=== PATIENT | male | born 1980 | race Caucasian/White ===

== ENCOUNTER 2018-03-24 08:43 | Emergency (ER) | payer BC ==
[2018-03-24] MEDS ORDERED: NS 1,000 ML IV ONE (09:20)
--- NOTE | 2018-03-24 09:23 | EDPHY ---
H & P Stated Complaint: Height head, trouble focusing Time Seen by Provider: 03/24/18 09:12 HPI/ROS: CHIEF COMPLAINT: Lightheaded, trouble focusing HISTORY OF PRESENT ILLNESS: Patient is a 37-year-old man with a history of anxiety and panic attacks who flew here yesterday from [place] for business. He states that he felt fine yesterday but this morning woke up and felt slightly lightheaded. He had trouble focusing on getting ready. He felt lightheaded when he tried to climb the stairs. He does not feel overly stressed or anxious. He has no history of cardiac disease. He denies chest pain or palpitations. He denies shortness of breath. No recent fevers or illness. No leg pain or swelling. No headache, no neck pain Severity: Minimal Modifying factors: None REVIEW OF SYSTEMS: Constitutional: denies: chills, fever, recent illness, recent injury EENTM: denies: blurred vision, double vision, nose congestion Respiratory: denies: cough, shortness of breath Cardiac: denies: chest pain, irregular heart rate, lightheadedness, palpitations Gastrointestinal/Abdominal: denies: abdominal pain, diarrhea, nausea, vomiting, blood streaked stools Genitourinary: denies: dysuria, frequency, hematuria, pain Musculoskeletal: denies: joint pain, muscle pain Skin: denies: lesions, rash, jaundice, bruising Neurological: denies: headache, numbness, paresthesia, tingling, dizziness, weakness Hematologic/Lymphatic: denies: blood clots, easy bleeding, easy bruising Immunologic/allergic: denies: HIV/AIDS, transplant 10 systems reviewed and negative except as noted EXAM: GENERAL: Well-appearing, well-nourished and in no acute distress. HEAD: Atraumatic, normocephalic. EYES: Pupils equal round and reactive to light, extraocular movements intact, sclera anicteric, conjunctiva are normal. ENT: TMs normal, nares patent, oropharynx clear without exudates. Moist mucous membranes. NECK: Normal range of motion, supple without lymphadenopathy or JVD. LUNGS: Breath sounds clear to auscultation bilaterally and equal. No wheezes rales or rhonchi. HEART: Regular rate and rhythm without murmurs, rubs or gallops. ABDOMEN: Soft, nontender, normoactive bowel sounds. No guarding, no rebound. No masses appreciated. BACK: No CVA tenderness, no spinal tenderness, step-offs or deformities EXTREMITIES: Normal range of motion, no pitting or edema. No clubbing or cyanosis. NEUROLOGICAL: Cranial nerves II through XII grossly intact. Normal speech, normal gait. 5/5 strength, normal movement in all extremities, normal sensation , normal reflexes PSYCH: Normal mood, normal affect. SKIN: Warm, dry, normal turgor, no visible rashes or lesions. Source: Patient Exam Limitations: No limitations - Personal History Current Tetanus Diphtheria and Acellular Pertussis (TDAP): Yes - Medical/Surgical History Hx Asthma: No Hx Chronic Respiratory Disease: No Hx Diabetes: No Hx Cardiac Disease: No Hx Renal Disease: No Hx Cirrhosis: No Hx Alcoholism: No Hx HIV/AIDS: No Hx Splenectomy or Spleen Trauma: No Other PMH: Sinus infection. Heart palitations. Panic attacks. - Family History Significant Family History: No pertinent family hx - Social History Smoking Status: Never smoked Alcohol Use: Sober Drug Use: None Constitutional: Initial Vital Signs Temperature (C) 36.5 C 03/24/18 08:48 Heart Rate 106 H 03/24/18 08:48 Respiratory Rate 18 03/24/18 08:48 Blood Pressure 103/66 03/24/18 08:48 O2 Sat (%) 93 03/24/18 08:48 O2 Delivery Mode Room Air Allergies/Adverse Reactions: Sulfa (Sulfonamide Antibiotics) Allergy (Verified 03/24/18 08:52) Home Medications: Medication Instructions Recorded Azithromycin 03/25/18 Flonase Allergy Relief 03/25/18 Zyrtec 03/25/18 Medical Decision Making - Diagnostics EKG Interpretation: An EKG obtained and was read and documented in trace view. Please see trace view for full reading and report. Sinus rhythm no acute ischemic changes Imaging: Discussed imaging studies w/ biofuels production technician Radiologist ED Course/Re-evaluation: The patient developed a mild headache which she states is not unusual for him. Resolved with ibuprofen here in the department. His heart rate improved with fluids. His x-ray ears at is mild airway disease. We discussed this. His white count is elevated. Otherwise he is well appearing and remains afebrile. No hypoxia. We agreed to start him on a Z-Merlin. We discussed indications for returning. Differential Diagnosis: Partial list of the Differential diagnosis considered include but were not limited to; bronchitis, upper respiratory tract infection, influenza, strep throat, anxiety and although unlikely based on the history and physical exam, I also considered acute coronary disease, sepsis, meningitis. I discussed these differential diagnoses and the plan with the patient as well as the usual and expected course. The patient understands that the diagnosis is provisional and that in medicine we are not always correct and that further workup is often warranted. Usual and customary warnings were given. All of the patient's questions were answered. The patient was instructed to return to the emergency department should the symptoms at all worsen or return, otherwise to followup with the physician as we discussed. - Data Points Laboratory Results: Laboratory Results 03/24/18 09:40 03/24/18 09:40 Medications Given: Discontinued Medications Azithromycin (Zithromax) 500 mg PO EDNOW ONE PRN Reason: Protocol Stop: 03/24/18 11:16 Last Admin: 03/24/18 11:27 Dose: 500 mg Sodium Chloride (Ns) 1,000 mls @ 0 mls/hr IV EDNOW ONE; Wide Open PRN Reason: Protocol Stop: 03/24/18 09:21 Last Admin: 03/24/18 10:10 Dose: 1,000 mls Ibuprofen (Motrin) 800 mg PO EDNOW ONE Stop: 03/24/18 09:56 Last Admin: 03/24/18 10:11 Dose: 800 mg Point of Care Test Results: Chemistry 03/24/18 09:45 POC Troponin I 0.00 ng/mL ng/mL (0.00-0.08) Departure - Departure Disposition: Home, Routine, Self-Care Clinical Impression: Bronchitis Condition: Good Instructions: Azithromycin (By mouth), Acute Bronchitis (ED) Referrals: NONE *PRIMARY CARE P,. [Primary Care Provider] - As per Instructions Maty Willoughby DO [Doctor of Osteopathy] - As per Instructions
--- NOTE | 2018-03-24 09:38 | CPEKG ---
Test Reason : OPEN Blood Pressure : / mmHG Vent. Rate : 089 BPM Atrial Rate : 089 BPM P-R Int : 141 ms QRS Dur : 083 ms QT Int : 339 ms P-R-T Axes : 081 077 064 degrees QTc Int : 413 ms Sinus rhythm Confirmed by Agustin Flores ([id number]) on 03/24/2018 9:38:07 AM Referred By: Confirmed By:Agustin Flores
[2018-03-24 09:48] LABS: PLATELET COUNT 300 10^3/uL (150-400)
[2018-03-24] MEDS ORDERED: IBUPROFEN 800 MG TAB PO ONE (09:55)
[2018-03-24] MEDS ORDERED: AZITHROMYCIN 250 MG TAB PO ONE (11:15)
[2018-03-24 11:27] VITALS: BP 103/63
== END 2018-03-24 11:47 | disposition home or self-care (01) ==
DX: J40 Bronchitis, not specified as acute or chronic (principal)
CPT/HCPCS: 84484-PO

== ENCOUNTER 2018-03-25 10:58 | Emergency (ER) | payer BC ==
[2018-03-25] MEDS ORDERED: ONDANSETRON DISINTEGRATING 4 MG TAB PO ONE (11:33)
--- NOTE | 2018-03-25 11:45 | EDPHY ---
General - History Smoking Status: Never smoked Time Seen by Provider: 03/25/18 11:38 Narrative: Independent physician evaluation: CHIEF COMPLAINT: Headache, clumsiness, altered mental status HISTORY OF PRESENT ILLNESS: The patient presents to the ED with complaints of increasing frontal headache, clumsiness, confusion and visual complaints which have been increasing over the past day. The patient is visiting [place] from [place]. He has been here on a business trip for the past day. Yesterday he woke in the morning with symptoms of sore throat. He developed nausea and vomiting throughout the day. He reportedly was also having some difficulty with fine motor movement and reported some difficulty shaving his face. He was also having some difficulty reading. He reports that he was unable to comprehend the difference between caffeinated decaffeinated coffee in the hotel room. This led the patient to come to the emergency department last night. He had a workup including an EKG which is unremarkable. He was noted to have a leukocytosis and questionable bronchitis noted on x-ray. Although the patient had no symptoms of a cough he was discharged home with a Z-Merlin. He returns today complaining of an increasing headache, difficulty ambulating, generalized weakness and the worse headache of his life. Physical exam: General Appearance: Alert, no distress Eyes: Pupils equal and round no pallor or injection ENT, Mouth: Mucous membranes moist Respiratory: There are no retractions, lungs are clear to auscultation Cardiovascular: Regular rate and rhythm Gastrointestinal: Abdomen is soft and nontender, no masses, bowel sounds normal Neurological: 5/5 strength noted all 4 extremities, cranial nerves 2-12 intact , no visual field deficit appreciated, normal finger to nose and fine motor movement appreciated Skin: Warm and dry, no rashes Musculoskeletal: Patient does have meningeal symptoms with forward flexion of his neck Extremities: symmetrical, full range of motion Psychiatric: Patient is oriented X 3, there is no agitation ED course: Patient presents to the ED with vague neurologic complaints of confusion, weakness and subjective ataxia. The patient was noted to have mild meningeal symptoms on exam. A noncontrast head CT scan artifact verses a abnormality of the brainstem. The patient was verbally consented to go undergo lumbar puncture which was performed by myself without complication at 1:45 p.m.. The patient did received 15 mg of IV Toradol following his LP. MRI of the brain with and without contrast has been ordered. The patient will be turned over to Dr. Kenyon at shift change pending the LP results and MRI. Procedure: Procedure: Lumbar puncture. Indication: headache After verbal informed consent from patient explaining the risks including infection, bleeding, and neurologic damage, a lumbar puncture was performed after the patient was prepped and draped in the usual fashion. The back was anesthetized with 1% lidocaine. Approximately 4 cc of clear fluid was obtained. Opening pressure was not obtained. There were no complications. The procedure was performed by myself. (Crow Burgos) CHIEF COMPLAINT: Headache, "motor skills off," vomiting HISTORY OF PRESENT ILLNESS: Patient presents to emergency depart by private vehicle with complaints of headache, vomiting, ear pain, and "my motor skills seem off."He describes the motor skills as having difficulty holding things for long periods and dropping things repeatedly. Symptoms have been present for several days. He was evaluated here for this similar complaints yesterday. He also had a cough at that time. He had extensive workup with diagnosis of bronchitis, with prescription for Zithromax. He is not taking any further medication for this other than ibuprofen. He states that he felt significantly better yesterday evening and last night, even going to dinner with his coworkers. However he awoke this morning with her his symptoms. He is a frontal headache with moderate to severe ear pain, nausea and vomiting several times. No chest pain. Minimal cough. No shortness of breath. No lower extremity complaints. Does have mild lower back pain. He has no urinary complaints. He has no fever. Associated with some mild dizziness that he describes as "it is really hard to describe." No numbness tingling or weakness. No Difficulty ambulating. No incontinence of bowel or bladder. No neck stiffness but does have occasional neck pain. He is traveling from [place] returns home later today. No other associated complaints or modifying factors REVIEW OF SYSTEMS: 10 systems were reviewed and negative with the exception of the elements mentioned in the history of present illness. PCP: Located in [place] SPECIALISTS: None PAST MEDICAL HISTORY: Sinus infection, panic attacks or palpitations. PAST SURGICAL HISTORY: No surgical history SOCIAL HISTORY: Nonsmoker. Occasional alcohol use. One severely cigar. No THC use. Lives in [place]. Traveling here for work until later today. FAMILY HISTORY: Noncontributory EXAMINATION: General Appearance: Alert, no distress. Well appearing. Ambulatory and conversing in complete sentences. Head: normocephalic, atraumatic Eyes: Pupils equal and round, no conjunctival pallor or injection. EOM symmetric. ENT, Mouth: Mucous membranes moist. Airway patent Neck: Normal inspection, supple, non-tender. No meningismus or rigidity. Midline trachea. Respiratory: Lungs are clear to auscultation pedal wheezing rhonchi or crackles Cardiovascular: Tachycardic rate. Regular rhythm. No murmur Gastrointestinal: Abdomen is soft and nontender Back: non-tender, no bony abnormalities Neurological: GCS 15. A&O, nonfocal, normal gait. Light sensory symmetric upper lower extremities. Normal [id number]. No pronator drift. Patellar reflexes symmetric 2+. Skin: Warm and dry, no rash Extremities: Nontender, no pedal edema Psychiatric: Mood and affect normal DIFFERENTIAL DIAGNOSES: Including but not limited to meningitis, vertigo, sinusitis, demyelination, dehydration, MDM: 11:45 a.m. [place] of complaints as above with no meningismus, normal neuro examination without any focal deficits. He is mildly tachycardic at 103 beats per minute. He is well-appearing. His lungs are clear. He has no nystagmus. I have ordered meclizine and he has already received Zofran. I will discuss with Dr. Burgos. He is in no acute distress. 12:10 p.m. Case discussed with Dr. Burgos he recommends CT scans of the head along with repeat laboratory studies for comparison. Patient is agreeable to this. 12:30 p.m. Notified by radiologist Dr. Donald with CT results as documented. Laboratory studies pending. 1:00 p.m. Remainder of laboratory studies are within normal limits. Patient has been evaluated by Dr. Burgos and he informs me that he will perform a lumbar puncture. He will assume care the patient at this time. Please see his note for further care final disposition. I am no longer involved in his care. SUPERVISION: Patient was evaluated and examined in conjunction with my secondary supervising physician Dr. Burgos as documented. We have both examined the patient. (Yosi Mckeon) Medical Decision Making: Re-evaluation 4:35 p.m.. Patient and I discussed imaging and lab results. Patient is conversational and neurologically intact. He complains of frontal headache. He is given Tylenol in the emergency department. We have considered CVA, brain tumor, meningitis. I suspect that this is viral syndrome (Bello Kenyon) - Diagnostics Imaging Results: Imaging Impressions Head CT 03/25/18 12:05 Impression: Artifact versus abnormal vascular structure or other abnormality in the left brainstem. Recommendation: Consider MRI without and with contrast. Results discussed with Yosi Mckeon at 12:35 PM. General information for patients regarding this examination can be found at [email or web address]. If you have questions or comments about this report, please contact me at [phone] (hospital) or [phone] ([facility]). Brain MRI 03/25/18 15:00 Impression: Small left frontal lobe venous angioma; otherwise normal MRI examination of the brain without and with contrast. Results called to Dr. Bello Kenyon at 4:20 p.m. Brain MRI without and with contrast reviewed by me and discussed with Dr. Villafuerte shows no evidence for CVA or tumor or bleeding especially paying attention to the brainstem with above CT impression. There is a venous angioma in the left frontal lobe is an incidental finding (Bello Kenyon) - Objective Vital Signs: Initial Vital Signs Temperature (C) 37.4 C 03/25/18 11:03 Heart Rate 103 H 03/25/18 11:03 Respiratory Rate 18 03/25/18 11:03 Blood Pressure 101/75 03/25/18 11:03 O2 Sat (%) 94 03/25/18 11:03 O2 Delivery Mode Room Air Allergies/Adverse Reactions: Sulfa (Sulfonamide Antibiotics) Allergy (Verified 03/24/18 08:52) Home Medications: Medication Instructions Recorded Azithromycin 03/25/18 Flonase Allergy Relief 03/25/18 Zyrtec 03/25/18 Laboratory Results: Laboratory Results 03/25/18 12:20 03/25/18 12:20 03/25/18 03/25/18 03/25/18 14:14 14:05 13:41 WBC RBC Hgb Hct MCV MCH MCHC RDW Plt Count MPV Neut % (Auto) Lymph % (Auto) [place] % (Auto) Eos % (Auto) Baso % (Auto) Nucleat RBC Rel Count Absolute Neuts (auto) Absolute Lymphs (auto) Absolute Monos (auto) Absolute Eos (auto) Absolute Basos (auto) Absolute Nucleated RBC Immature Gran % Immature Gran # Sodium Potassium Chloride Carbon Dioxide Anion Gap BUN Creatinine Estimated GFR Glucose Calcium Total Bilirubin Conjugated Bilirubin Unconjugated Bilirubin AST ALT Alkaline Phosphatase Total Protein Albumin Lipase CSF Tube Number 4 1 CSF Appearance CLEAR CLEAR (CLEAR) (CLEAR) CSF Color COLORLESS COLORLESS (COLORLESS) (COLORLESS) CSF Supernatant Not Reported Not Reported CSF WBC 0 /mm3 /mm3 0 /mm3 /mm3 (0-5) (0-5) CSF RBC 0 /mm3 /mm3 0 /mm3 /mm3 (0-0) (0-0) CSF Glucose 70 mg/dL mg/dL (50-75) CSF Total Protein 32 mg/dL mg/dL (12-60) Nasal Influenza A PCR NEGATIVE FOR FLU A (NEGATIVE) Nasal Influenza B PCR NEGATIVE FOR FLU B (NEGATIVE) 03/25/18 03/25/18 12:20 12:20 WBC 16.15 10^3/uL H 10^3/uL (3.80-9.50) RBC 4.44 10^6/uL 10^6/uL (4.40-6.38) Hgb 14.1 g/dL g/dL (13.7-17.5) Hct 40.4 % % (40.0-51.0) MCV 91.0 fL fL (81.5-99.8) MCH 31.8 pg pg (27.9-34.1) MCHC 34.9 g/dL g/dL (32.4-36.7) RDW 12.6 % % (11.5-15.2) Plt Count 280 10^3/uL 10^3/uL (150-400) MPV 11.1 fL fL (8.7-11.7) Neut % (Auto) 88.5 % H % (39.3-74.2) Lymph % (Auto) 6.7 % L % (15.0-45.0) [place] % (Auto) 4.1 % L % (4.5-13.0) Eos % (Auto) 0.0 % L % (0.6-7.6) Baso % (Auto) 0.2 % L % (0.3-1.7) Nucleat RBC Rel Count 0.0 % % (0.0-0.2) Absolute Neuts (auto) 14.29 10^3/uL H 10^3/uL (1.70-6.50) Absolute Lymphs (auto) 1.08 10^3/uL 10^3/uL (1.00-3.00) Absolute Monos (auto) 0.66 10^3/uL 10^3/uL (0.30-0.80) Absolute Eos (auto) 0.00 10^3/uL L 10^3/uL (0.03-0.40) Absolute Basos (auto) 0.04 10^3/uL 10^3/uL (0.02-0.10) Absolute Nucleated RBC 0.00 10^3/uL 10^3/uL (0-0.01) Immature Gran % 0.5 % % (0.0-1.1) Immature Gran # 0.08 10^3/uL 10^3/uL (0.00-0.10) Sodium 140 mEq/L mEq/L (135-145) Potassium 4.4 mEq/L mEq/L (3.3-5.0) Chloride 105 mEq/L mEq/L (97-110) Carbon Dioxide 26 mEq/l mEq/l (22-31) Anion Gap 9 mEq/L mEq/L (6-14) BUN 15 mg/dL mg/dL (7-23) Creatinine 0.9 mg/dL mg/dL (0.7-1.3) Estimated GFR > 60 Glucose 103 mg/dL H mg/dL (70-100) Calcium 9.7 mg/dL mg/dL (8.5-10.4) Total Bilirubin 0.8 mg/dL mg/dL (0.1-1.4) Conjugated Bilirubin 0.1 mg/dL mg/dL (0.0-0.5) Unconjugated Bilirubin 0.7 mg/dL mg/dL (0.0-1.1) AST 23 IU/L IU/L (17-59) ALT 35 IU/L IU/L (21-72) Alkaline Phosphatase 55 IU/L IU/L (38-126) Total Protein 7.6 g/dL g/dL (6.3-8.2) Albumin 4.6 g/dL g/dL (3.5-5.0) Lipase 66 IU/L IU/L (23-300) CSF Tube Number CSF Appearance CSF Color CSF Supernatant CSF WBC CSF RBC CSF Glucose CSF Total Protein Nasal Influenza A PCR Nasal Influenza B PCR Microbiology Results: MICROBIOLOGY 03/25/18 13:41 Cerebral Spinal Fluid Gram Stain - Final Medications Given: Discontinued Medications Acetaminophen (Tylenol) 650 mg PO EDNOW ONE Stop: 03/25/18 16:34 Last Admin: 03/25/18 16:39 Dose: 650 mg Sodium Chloride (Ns) 1,000 mls @ 0 mls/hr IV EDNOW ONE; Wide Open PRN Reason: Protocol Stop: 03/25/18 12:11 Last Admin: 03/25/18 12:15 Dose: 1,000 mls Ketorolac Tromethamine (Toradol) 15 mg IVP EDNOW ONE Stop: 03/25/18 13:44 Last Admin: 03/25/18 13:47 Dose: 15 mg Meclizine HCl (Meclizine Hcl) 25 mg PO EDNOW ONE Stop: 03/25/18 11:58 Last Admin: 03/25/18 12:07 Dose: 25 mg Ondansetron HCl (Zofran Odt) 4 mg PO EDNOW ONE Stop: 03/25/18 11:34 Last Admin: 03/25/18 11:36 Dose: 4 mg Departure - Departure Disposition: Home, Routine, Self-Care Clinical Impression: Headache Qualifiers: Headache type: unspecified Headache chronicity pattern: acute headache Intractability: not intractable Qualified Code(s): R51 - Headache Condition: Good Instructions: Viral Syndrome (ED) Additional Instructions: Ibuprofen 600 mg every 6 hr, Tylenol 650 mg every 4-6 hours as needed for headache. Drink plenty of fluids and stay hydrated. Return tomorrow for worsening symptoms. Otherwise follow up with your regular physician upon return home to [place]. You're MRI was normal but did show a venous angioma in the left frontal lobe that was not thought to be a cause of your symptoms Referrals: NONE *PRIMARY CARE P,. [Primary Care Provider] - As per Instructions
[2018-03-25] MEDS ORDERED: MECLIZINE HCL 25 MG TAB PO ONE (11:57)
[2018-03-25] MEDS ORDERED: NS 1,000 ML IV ONE (12:10)
[2018-03-25 12:34] LABS: PLATELET COUNT 280 10^3/uL (150-400)
[2018-03-25] MEDS ORDERED: KETOROLAC 15 MG/1 ML SDV IVP ONE (13:43)
[2018-03-25] MEDS ORDERED: GADOBUTROL 10 ML VIAL IVP ONE (15:46)
[2018-03-25 16:31] VITALS: BP 104/63
[2018-03-25] MEDS ORDERED: ACETAMINOPHEN 325 MG TAB PO ONE (16:33)
== END 2018-03-25 17:09 | disposition home or self-care (01) ==
PROC: 009U3ZX Drainage of Spinal Canal, Percutaneous Approach, Diagnostic (ICD-10-PCS; principal; 2018-03-25)
DX: R51 Headache (principal); R41.82 Altered mental status, unspecified; R11.2 Nausea with vomiting, unspecified; Q28.3 Other malformations of cerebral vessels; E86.9 Volume depletion, unspecified
CPT/HCPCS: 96374; A9585; J1885